=== PATIENT | female | born 1965 | race African-American/Black ===

== ENCOUNTER 2022-10-27 20:31 | Emergency (ER) | payer MEDICAID ==
[~2022-10-27] VITALS: Ht 165.1 cm; Wt 70.0 kg
[2022-10-27 20:38] VITALS: BP 186/95
== END 2022-10-27 23:25 | disposition left against medical advice (07) ==
LOC: ER 20:31
DX: Z53.21 Procedure and treatment not carried out due to patient leaving prior to being seen by health care provider (principal)